=== PATIENT | male | born 1960 | race Caucasian/White ===

== ENCOUNTER 2016-03-06 11:13 | Emergency (ER) | payer OTHER ==
--- NOTE | 2016-03-06 12:06 | ERRECORD ---
[facility] EMERGENCY RECORD HPI BACK (11:35 [facility]) CHIEF COMPLAINT: Patient presents for evaluation of numbness, Patient presents for evaluation of pain, to the left lower back. HISTORIAN: History provided by patient, 55M presents with complaints of left lumbar pain with radiation down his left leg. Denies injury or trauma. Has a remote history of back surgery, but denies any problems over the past 3 years. Denies fever, denies IV drug use. Denies changes in urinary or bowel habits. MECHANISM OF INJURY: No apparent mechanism of injury. LOCATION: Symptoms are localized to the back, left lumbar region. QUALITY: Pain is dull in nature, described as aching. ASSOCIATED WITH: No associated bladder incontinence, No associated bowel incontinence, Associated with numbness, No associated problems with urination, Associated with radiation of pain, to the left leg, Associated with sciatica, on the left. EXACERBATED BY: Patient's condition exacerbated by movement, Patient's condition exacerbated by walking. RELIEVED BY: Patient's condition relieved by nothing. ROS (11:37 [facility]) CONSTITUTIONAL: Negative constitutional review of systems, Historian denies chills, denies fever. EYES: Negative eye review of systems, Historian denies eye pain, denies eye discharge, denies vision changes. ENT: Negative ears, nose, throat review of systems, Historian denies rhinorrhea, denies sore throat. CARDIOVASCULAR: Negative cardiovascular review of systems, Historian denies chest pain, denies palpitations. RESPIRATORY: Negative respiratory review of systems, Historian denies cough, denies shortness of breath. GI: Negative gastrointestinal review of systems, Historian denies abdominal pain, denies constipation, denies diarrhea, denies nausea, denies vomiting. GENITOURINARY MALE: Negative genitourinary review of systems, Historian denies dysuria, denies hematuria. MUSCULOSKELETAL: Historian reports back pain, reports myalgias. SKIN: Negative skin review of systems, Historian denies rash, denies skin changes. NEUROLOGIC: Negative neurologic review of systems, Historian denies headache. HEMO/LYMPHATIC: Normal hematologic/lymphatic system review, Historian denies abnormal blood clotting. PAST MEDICAL HISTORY (11:31 [facility]) MEDICAL HISTORY: Notes: hidradenitis suppurativa, Flu vaccine not up to date, Tetanus immunization up to &a-1R&a+25V*p+0X*l4048T*c202B*c15G*c2P*p-0X&a-25V&a+1R Name: Hever Jimenez : 1960 M55 MedRec: [id number] AcctNum: [id number] Prepared: gautam Mar 06, 2016 12:04 by Interface Page [address] [facility] EMERGENCY RECORD date, Pneumococcal vaccine not up to date, Past medical history includes gastrointestinal disease, diverticulosis, Past medical history includes renal disease, kidney stone(s). MALE SURGICAL HISTORY: Renal stent, Surgical history of spinal surgery, lumbar. PSYCHIATRIC HISTORY: No previous psychiatric history. SOCIAL HISTORY: Patient denies alcohol use, Patient denies drug use, Patient currently uses tobacco, smokes cigarettes, daily, Patient has smoked for 15 years, Patient smokes 1/2 packs per day. KNOWN ALLERGIES NSAIDS (Non-Steroidal Anti-Inflammatory Drug) Penicillins CURRENT MEDICATIONS (11:23 [facility]) None VITAL SIGNS VITAL SIGNS: BP: 133/79, Pulse: 98, Resp: 18 (Non-Labored), Temp: 97.8 (Oral), Pain: 9, O2 sat: 96 on Room Air, Time: 03/06/2016 11:19. (11:19 WJAN) BP: 124/79, Pulse: 98, Resp: 18, Temp: 97.8, Pain: 6, O2 sat: 96 on RA, Time: 03/06/2016 11:58. (11:58 [facility]) PHYSICAL EXAM (11:37 [facility]) CONSTITUTIONAL: Vital signs reviewed, Patient afebrile, Pulse normal, Blood pressure normal, Respiratory rate normal, Patient appears non toxic, Patient appears pain free, Patient alert and oriented to person, place and time. HEAD: Head exam normal, Head exam included findings of head atraumatic, normocephalic. EYES: Eye exam normal, Eye exam included findings of eyelids normal to inspection, Pupils equally round and reactive to light, Extraocular muscles intact, no nystagmus. ENT: ENT exam normal, Ear exam normal, external ear normal, tympanic membranes normal, no bleeding, Pharynx exam normal, Uvula exam normal, Tonsil exam normal, Mouth exam normal, mucous membranes moist, teeth normal. NECK: Neck exam normal, Neck exam included findings of normal range of motion, Trachea midline, no meningeal signs, no cervical adenopathy, no tenderness. RESPIRATORY CHEST: Respiratory and chest exam normal, Respiratory exam included findings of no respiratory distress, Breath sounds clear. CARDIOVASCULAR: Cardiovascular assessment normal, Cardiovascular exam included findings of heart rate regular rate and rhythm, Heart sounds normal. ABDOMEN MALE: Abdominal exam included findings of abdomen &a-1R&a+25V*p+0X*d2111A*c202B*c15G*c2P*p-0X&a-25V&a+1R Name: Hever Jimenez : 1960 M55 MedRec: [id number] AcctNum: [id number] Prepared: Margie Mar 06, 2016 12:04 by Interface Page [address] [facility] EMERGENCY RECORD nontender, Bowel sounds normal, no distension, no mass, no pulsatile masses, no peritoneal signs, no rigidity, no guarding, no rebound, Rovsing's sign absent. BACK: old deformity over lumbar spine and surgical scar. No midline tenderness, no warmth or erythema. Mild lumbar paraspinal tenderness to palpation. positive straight leg test. UPPER EXTREMITY: Upper extremity exam normal, Upper extremity exam included findings of inspection normal, Range of motion normal, Motor strength normal, Sensation intact, Radial pulse normal. LOWER EXTREMITY: Lower extremity exam normal, Lower extremity exam included findings of inspection normal, Range of motion normal, Motor strength normal, Sensation intact, Posterior tibial pulse normal, Pedal pulse normal. NEURO: Neuro exam normal, Neuro exam findings include patient oriented to person, place and time, Speech normal, Gait normal. SKIN: Skin exam normal, Skin exam included findings of skin warm, dry, and normal in color, no rash. PSYCHIATRIC: Psychiatric exam normal, Normal affect. 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 DOCTOR NOTES (11:55 [facility]) TEXT: Patient presented with back pain concerning for sciatic nerve root impingement. There were no findings concerning for cauda equina syndrome, and he had no features that would be concerning for an spinal abscess or infectious process. I believe based on his symptoms he likely has nerve root impingement. Xray of the spine believed to show no acute changes, all chronic. I offered urgent MRI but he refused and stated he would prefer to follow up with his back surgeon in [place]. I do not believe that this is an inappropriate plan of care, and will provide analgesia until he sees his specialist, hopefully this week. He believes he will be able to be seen this week. PATIENT PLAN: The patient will be discharged, Follow up with specialist. PROBLEM LIST No recorded problems DIAGNOSIS (11:52 [facility]) FINAL: PRIMARY: Sciatica - Left. PRESCRIPTION No recorded prescriptions DISPOSITION PATIENT: Disposition Type: Discharge, Disposition: *Discharge Home. (:52 [facility]) &a-1R&a+25V*p+0X*m3453D*c202B*c15G*c2P*p-0X&a-25V&a+1R Name: Hever Jimenez Harris : 1960 M55 MedRec: [id number] AcctNum: [id number] Prepared: Margie Mar 06, 2016 12:04 by Interface Page [address] [facility] EMERGENCY RECORD Condition: Good, Patient left the department. (12:01 [facility]) Mendoza: LOPEZ=MD Steffanie, Sudhir GASCA=ROSALIA Kinney, Dora &a-1R&a+25V*p+0X*n6164L*c202B*c15G*c2P*p-0X&a-25V&a+1R Name: Hever Jimenez Harris : 1960 5 MedRec: [id number] AcctNum: [id number] Prepared: Margie Mar 06, 2016 12:04 by Interface Page 4 of 4 pMD MTDD
--- NOTE | 2016-03-06 12:09 | PICIS ---
[facility] EMERGENCY RECORD TRIAGE (SatMar 06, 2016 11:22 WJAN) TRIAGE NOTES: Pt reports similar pain prior to back surgery 3 years ago. (SatMar 06, 2016 11:22 [facility]) PATIENT: NAME: Hever Jimenez, AGE: 55, GENDER: male, : Sat1960, TIME OF GREET: SatMar 06, 2016 11:15, PREFERRED LANGUAGE: Kyrgyz, ETHNICITY: Not or , ECODE BILLING MAP: [facility], SSN: [id number], Zip Code: [address], KG WEIGHT: 63.5 (est.), PHONE: , , , PERSON ID: [id number], PCP: SHANICE. (SatMar 06, 2016 11:22 W[facility]AN) [facility]. (11:39) COMPLAINT: Left hip pain. (SatMar 06, 2016 11:22 WJAN) ADMISSION: URGENCY: 4 Non Urgent, ADMISSION SOURCE: Home, TRANSPORT: Walk-in, BED: TRIAGE. (SatMar 06, 2016 11:22 WJAN) ASSESSMENT: Assessment: Pt A&Ox4, NAD, breathing non-labored. Walking difficult for left side. (11:31 [facility]) PAIN: Patient complains of pain described as, Location left hip, Pain is constant, Onset was 03/06/2015, No relieving factors. (11:31 [facility]) IMMUNIZATIONS: Flu vaccine not up to date, Tetanus immunization up to date, Pneumococcal vaccine not up to date. (11:31 [facility]) SIRS SCORING: Heart Rate 55-109 (0), Temp range 96.8-101.1 (0), respiratory rate 12-24 (0), Mental Status altered: no (0), Infection or Suspected Infection: No. (11:31 WJAN) TRIAGE SCREENING: Patient denies suicidal ideation, Patient denies presence of domestic violence. (11:31 WJAN) PROVIDERS: TRIAGE NURSE: Dora Kinney RN. (SatMar 06, 2016 11:22 WJAN) VITAL SIGNS: BP 133/79, Pulse 98, Resp 18, (Non-Labored), Temp 97.8, (Oral), Pain 9, O2 Sat 96, on Room Air, Time 03/06/2016 11:19. (11:19 WJAN) KNOWN ALLERGIES NSAIDS (Non-Steroidal Anti-Inflammatory Drug) Penicillins CURRENT MEDICATIONS (11:23 [facility]) None VITAL SIGNS VITAL SIGNS: BP: 133/79, Pulse: 98, Resp: 18 (Non-Labored), Temp: 97.8 (Oral), Pain: 9, O2 sat: 96 on Room Air, Time: 03/06/2016 11:19. (11:19 WJAN) BP: 124/79, Pulse: 98, Resp: 18, Temp: 97.8, Pain: 6, O2 sat: 96 on RA, Time: 03/06/2016 11:58. (11:58 WJAN) NURSING ASSESSMENT: EXTREMITY LOWER (11:33 [facility]) CONSTITUTIONAL: Patient arrives ambulatory, Gait steady, History obtained from patient, Patient appears, uncomfortable, &a-1R&a+25V*p+0X*j8267Q*c202B*c15G*c2P*p-0X&a-25V&a+1R Name: Hever Jimenez : 1960 M55 MedRec: [id number] AcctNum: [id number] Prepared: Margie Mar 06, 2016 12:06 by Interface Page 1 of 6 pMD [facility] EMERGENCY RECORD Patient cooperative, Patient alert, Oriented to person, place and time, Skin warm, Skin dry, Skin normal in color, Mucous membranes pink, Mucous membranes moist, Patient is well-groomed, Patient complains of Left hip pain, Pt reports pain in left hip starting last night, pt states he had similar pain prior to back surgery 3 years ago. Pt states pain is radiating down from left hip to lower leg. PT A&Ox4, NAD, breathing non-labored. PAIN: shooting pain, to the left hip, on a scale 0-10 patient rates pain as 9, Pain exacerbated by. LEFT LOWER EXTREMITY: Left lower extremity assessment findings include capillary refill less than 2 seconds, Skin color normal, Skin temperature warm, Distal sensation intact, Muscle tone normal, muscle strength 5, no edema present, posterior tibia pulse is +3, dorsalis pedis pulse is +3, Inspection findings include no deformity, Inspection findings include no pressure ulcers to the hip, Inspection findings include no pressure ulcer to the sacrum, Inspection findings include no pressure ulcer to the heel, Inspection findings include no pressure ulcer, Inspection findings include no signs of trauma, Inspection findings include no swelling. SAFETY: Side rails up, Cart/Stretcher in lowest position, Call light within reach, Hospital ID band on. NURSING PROCEDURE: DISCHARGE NOTE (11:58 WJAN) DISCHARGE: Patient discharged to home, ambulating without assistance, driving self, unaccompanied, Summary of Care printed/ provided, Patient requested and was provided an electronic copy of Discharge Instructions, Transition record given to patient, Discharge instructions given to patient, Simple or moderate discharge teaching performed, by Dora RN, Prescriptions given and instructions on side effects given, Medication reconciliation form given, Above person(s) verbalized understanding of discharge instructions and follow-up care, Notes: Patient instructed to follow up with PCP and specialist. Patient instructed to follow medication instructions. Patient instructed to follow discharge teaching. BELONGINGS: Belongings remain with patient, Valuables remain with patient. SAFETY: Side rails up, Cart/Stretcher in lowest position, Call light within reach, Hospital ID band on. VITAL SIGNS: BP: 124, / 79, Pulse: 98, Resp: 18, Temp: 97.8, Pain: 6, O2 sat: 96, on: RA, Time: 1155. NURSING PROCEDURE: NURSE NOTES NURSES NOTES: Notes: MD at bedside. (11:26 WJAN) Patient in no apparent distress, Assistance offered to patient, Notes: MD at bedside. (11:43 WJAN) NURSING PROCEDURE: TRANSPORT TO TESTS PATIENT IDENTIFIER: Patient actively involved in identification process, Patient's identity verified by patient stating name, Patient's identity verified by patient stating date, Patient's &a-1R&a+25V*p+0X*j6078N*c202B*c15G*c2P*p-0X&a-25V&a+1R Name: Hever Jimenez : 1960 M55 MedRec: [id number] AcctNum: [id number] Prepared: Margie Mar 06, 2016 12:06 by Interface Page 2 of 6 D [facility] EMERGENCY RECORD identity verified by hospital ID [email or web address]. (11:36 [facility]) TRANSPORT TO TESTS: Patient transported to x-ray, via wheelchair, Accompanied by x-ray service center technician. (11:36 [facility]) FOLLOW-UP: After procedure, patient returned to emergency department. (11:43 WJAN) ORDER DETAILS Order Name: XR Lumbar Spine 2 Or 3 View, Status: Active, Time: 11:30 03/06/2016, User: [facility], - Ordered for: MD Valiente Jason, - Entered by: MD Valiente Jason - Tue Mar 06, 2016 11:30, - Quantity: 1. HPI BACK (11:35 [facility]) CHIEF COMPLAINT: Patient presents for evaluation of numbness, Patient presents for evaluation of pain, to the left lower back. HISTORIAN: History provided by patient, 55M presents with complaints of left lumbar pain with radiation down his left leg. Denies injury or trauma. Has a remote history of back surgery, but denies any problems over the past 3 years. Denies fever, denies IV drug use. Denies changes in urinary or bowel habits. MECHANISM OF INJURY: No apparent mechanism of injury. LOCATION: Symptoms are localized to the back, left lumbar region. QUALITY: Pain is dull in nature, described as aching. ASSOCIATED WITH: No associated bladder incontinence, No associated bowel incontinence, Associated with numbness, No associated problems with urination, Associated with radiation of pain, to the left leg, Associated with sciatica, on the left. EXACERBATED BY: Patient's condition exacerbated by movement, Patient's condition exacerbated by walking. RELIEVED BY: Patient's condition relieved by nothing. ROS (11:37 [facility]) CONSTITUTIONAL: Negative constitutional review of systems, Historian denies chills, denies fever. EYES: Negative eye review of systems, Historian denies eye pain, denies eye discharge, denies vision changes. ENT: Negative ears, nose, throat review of systems, Historian denies rhinorrhea, denies sore throat. CARDIOVASCULAR: Negative cardiovascular review of systems, Historian denies chest pain, denies palpitations. RESPIRATORY: Negative respiratory review of systems, Historian denies cough, denies shortness of breath. GI: Negative gastrointestinal review of systems, Historian denies abdominal pain, denies constipation, denies diarrhea, denies nausea, denies vomiting. &a-1R&a+25V*p+0X*o6630I*c202B*c15G*c2P*p-0X&a-25V&a+1R Name: Hever Jimenez : 1960 M55 MedRec: [id number] AcctNum: [id number] Prepared: SatMar 06, 2016 12:06 by Interface Page 3 of 6 pMD [facility] EMERGENCY RECORD GENITOURINARY MALE: Negative genitourinary review of systems, Historian denies dysuria, denies hematuria. MUSCULOSKELETAL: Historian reports back pain, reports myalgias. SKIN: Negative skin review of systems, Historian denies rash, denies skin changes. NEUROLOGIC: Negative neurologic review of systems, Historian denies headache. HEMO/LYMPHATIC: Normal hematologic/lymphatic system review, Historian denies abnormal blood clotting. PAST MEDICAL HISTORY (11:31 [facility]) MEDICAL HISTORY: Notes: hidradenitis suppurativa, Flu vaccine not up to date, Tetanus immunization up to date, Pneumococcal vaccine not up to date, Past medical history includes gastrointestinal disease, diverticulosis, Past medical history includes renal disease, kidney stone(s). MALE SURGICAL HISTORY: Renal stent, Surgical history of spinal surgery, lumbar. PSYCHIATRIC HISTORY: No previous psychiatric history. SOCIAL HISTORY: Patient denies alcohol use, Patient denies drug use, Patient currently uses tobacco, smokes cigarettes, daily, Patient has smoked for 15 years, Patient smokes 1/2 packs per day. PHYSICAL EXAM (11:37 [facility]) CONSTITUTIONAL: Vital signs reviewed, Patient afebrile, Pulse normal, Blood pressure normal, Respiratory rate normal, Patient appears non toxic, Patient appears pain free, Patient alert and oriented to person, place and time. HEAD: Head exam normal, Head exam included findings of head atraumatic, normocephalic. EYES: Eye exam normal, Eye exam included findings of eyelids normal to inspection, Pupils equally round and reactive to light, Extraocular muscles intact, no nystagmus. ENT: ENT exam normal, Ear exam normal, external ear normal, tympanic membranes normal, no bleeding, Pharynx exam normal, Uvula exam normal, Tonsil exam normal, Mouth exam normal, mucous membranes moist, teeth normal. NECK: Neck exam normal, Neck exam included findings of normal range of motion, Trachea midline, no meningeal signs, no cervical adenopathy, no tenderness. RESPIRATORY CHEST: Respiratory and chest exam normal, Respiratory exam included findings of no respiratory distress, Breath sounds clear. CARDIOVASCULAR: Cardiovascular assessment normal, Cardiovascular exam included findings of heart rate regular rate and rhythm, Heart sounds normal. ABDOMEN MALE: Abdominal exam included findings of abdomen &a-1R&a+25V*p+0X*n4249Q*c202B*c15G*c2P*p-0X&a-25V&a+1R Name: Hever Jimenez : 1960 M55 MedRec: [id number] AcctNum: [id number] Prepared: SatMar 06, 2016 12:06 by Interface Page 4 of 6 pMD [facility] EMERGENCY RECORD nontender, Bowel sounds normal, no distension, no mass, no pulsatile masses, no peritoneal signs, no rigidity, no guarding, no rebound, Rovsing's sign absent. BACK: old deformity over lumbar spine and surgical scar. No midline tenderness, no warmth or erythema. Mild lumbar paraspinal tenderness to palpation. positive straight leg test. UPPER EXTREMITY: Upper extremity exam normal, Upper extremity exam included findings of inspection normal, Range of motion normal, Motor strength normal, Sensation intact, Radial pulse normal. LOWER EXTREMITY: Lower extremity exam normal, Lower extremity exam included findings of inspection normal, Range of motion normal, Motor strength normal, Sensation intact, Posterior tibial pulse normal, Pedal pulse normal. NEURO: Neuro exam normal, Neuro exam findings include patient oriented to person, place and time, Speech normal, Gait normal. SKIN: Skin exam normal, Skin exam included findings of skin warm, dry, and normal in color, no rash. PSYCHIATRIC: Psychiatric exam normal, Normal affect. EVENTS TRANSFER: Triage to Emergency Triage. (SatMar 06, 2016 11:22 [facility]) Emergency Triage to Emergency Room -02. (11:23 [facility]) Removed from Emergency Emergency Room -02. 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 [facility] TEXT: Patient presented with back pain concerning for sciatic nerve root impingement. There were no findings concerning for cauda equina syndrome, and he had no features that would be concerning for an spinal abscess or infectious process. I believe based on his symptoms he likely has nerve root impingement. Xray of the spine believed to show no acute changes, all chronic. I offered urgent MRI but he refused and stated he would prefer to follow up with his back surgeon in [place]. I do not believe that this is an inappropriate plan of care, and will provide analgesia until he sees his specialist, hopefully this week. He believes he will be able to be seen this week. PATIENT PLAN: The patient will be discharged, Follow up with specialist. PROBLEM LIST No recorded problems DIAGNOSIS (: [facility]) FINAL: PRIMARY: Sciatica - Left. &a-1R&a+25V*p+0X*t6588S*c202B*c15G*c2P*p-0X&a-25V&a+1R Name: Hever Jimenez Harris : 1960 M55 MedRec: [id number] AcctNum: [id number] Prepared: Margie Mar 06, 2016 12:06 by Interface Page 5 of 6 pMD [facility] EMERGENCY RECORD DISPOSITION PATIENT: Disposition Type: Discharge, Disposition: *Discharge Home. (: [facility]) Condition: Good, Patient left the department. (:) INSTRUCTION (: [facility]) DISCHARGE: SCIATICA. SPECIAL: Call your Back surgeon TODAY. Schedule an MRI as soon as possible. Return to the ED if you have bowel incontinence, can't urinate, or develop a fever. PRESCRIPTION No recorded prescriptions IMAGING (:) *SUPPLY CHARGE SHEET: Image captured from scanner. *DISCHARGE INSTRUCTIONS RECEIPT: Image captured from scanner. ADMIN (11:58 [facility]) DIGITAL SIGNATURE: MD Steffanie, Sudhir. Mendoza: RENARD=DWAYNE Feliciano, June [facility]=MD Valiente Jason WJAN=ROSALIA Kinney, Dora &a-1R&a+25V*p+0X*a3945O*c202B*c15G*c2P*p-0X&a-25V&a+1R Name: Hever Jimenez Harris : 1960 M55 MedRec: [id number] AcctNum: [id number] Prepared: Margie Mar 06, 2016 12:06 by Interface Page 6 of 6 pMD MTDD
--- NOTE | 2016-03-06 20:26 | RAD ---
LUMBAR SPINE 03/06/16 Three views are provided. Prior studies are not available for comparison, though are probably presen t elsewhere given a history of a prior laminectomy. Lumbar scoliosis is present, convexed left. Severe degenerative disc disease is seen in the lumbar s pine, especially at L2-L3, L3-L4 and L4-L5. There is a prominent anterolisthesis of L4 on L5 and a s light anterolisthesis of L5 on S1. I would not be surprised if there were neural impingement in this patient. MRI would be better at assessing this status. A calcification is seen in the left flank th at is probably left renal calculi. IMPRESSION: Scoliosis with severe degenerative change and prominent anterolisthesis, particularly at L4-L5. MRI recommended if possible. POS: HOME
== END 2016-03-06 11:58 | disposition home or self-care (01) ==
LOC: BURERS 11:13
DX: M54.42 Lumbago with sciatica, left side (principal); F17.210 Nicotine dependence, cigarettes, uncomplicated; Z87.442 Personal history of urinary calculi
CPT/HCPCS: 72100; 99283

== ENCOUNTER 2016-03-19 10:06 | Emergency (ER) | payer OTHER ==
[2016-03-19] MEDS ORDERED: Morphine Sulfate 2 MG/ML SYRINGE ONE ×2 (10:25→11:10)
[2016-03-19] MEDS ORDERED: Diazepam 5 MG TAB ONE ×2 (10:37)
[2016-03-19] MEDS ORDERED: Diazepam 5 MG TAB PO SCH (10:45)
[2016-03-19] MEDS ORDERED: HYDROcodone/Acetaminophen 5/325 mg Tablet ONE (11:48)
[2016-03-19 12:00] LABS: Bilirubin Negative (Negative); Blood, Urine Negative (Negative); Glucose, Urine (Dipstick) Negative (Negative); Ketone, Urine Negative (Negative); Nitrite Negative (Negative); Protein, Urine (Dipstick) Negative (Neg-Trace); Urobilinogen 0.2 mg/dL (0.2-1.0)
--- NOTE | 2016-03-19 12:39 | ERRECORD ---
[facility] EMERGENCY RECORD HPI BACK CHIEF COMPLAINT: Patient presents for evaluation of pain, to the right lower back. (10:23 MBRI) HISTORIAN: History provided by patient. (10:23 MBRI) MECHANISM OF INJURY: No apparent mechanism of injury, No domestic violence associated with this incident, Not work related, Pt with hx of back pain with stenosis and prior laminectomy 3yrs prior. (10:23 MBRI) LOCATION: Symptoms are localized to the back, right lumbar region, No radiation back to front, No radiation to the groin, Pain has not moved in location over time, with radiation to the buttock and down the outer portion of the right leg. (10:23 MBRI) QUALITY: Pain is dull in nature, described as aching. (10:23 MBRI) SEVERITY: Maximum severity of symptoms moderate, Currently symptoms are moderate. (10:23 MBRI) TIME COURSE: Sudden onset of symptoms, this am., Symptoms are worsening. (10:23 MBRI) ASSOCIATED WITH: No associated abdominal pain, No associated bladder incontinence, No associated bowel incontinence, No associated dysuria, No associated fever, No associated inability to ambulate, No associated motor weakness, No associated numbness, No associated problems with urination, Associated with radiation of pain, to the right leg, to the right buttock, Associated with sciatica, No associated tingling, Denies any other complaints. (10:25 MBRI) EXACERBATED BY: Patient's condition exacerbated by extension, Patient's condition exacerbated by flexion, Patient's condition exacerbated by movement, Patient's condition exacerbated by rotation, Patient's condition exacerbated by walking. (10:23 MBRI) RELIEVED BY: Patient's condition relieved by nothing. (10:23 MBRI) RISK FACTORS: No malignancy risks identified, Herniated disc risks:, History of herniated disc, Disc surgery, No risk factors for thoracic aortic dissection, No abdominal aortic aneurysm risk factors, No epidural bleed risk factors, No epidural abcess risk factors. (10:23 MBRI) ROS (10:23 MBRI) CONSTITUTIONAL: Negative constitutional review of systems, Historian denies chills, denies fever. EYES: Negative eye review of systems. ENT: Negative ears, nose, throat review of systems. CARDIOVASCULAR: Historian denies chest pain, denies dyspnea on exertion. RESPIRATORY: Historian denies cough, denies shortness of breath. GI: Negative gastrointestinal review of systems, Historian denies abdominal pain, denies diarrhea, denies nausea, denies vomiting. GENITOURINARY MALE: Historian denies dysuria, denies hematuria, denies incontinence, denies urinary frequency, denies urine output changes, denies urinary retention. &a-1R&a+25V*p+0X*i6480P*c202B*c15G*c2P*p-0X&a-25V&a+1R Name: Hever Jimenez : 1960 M55 MedRec: [id number] AcctNum: [id number] Prepared: SatMar 19, 2016 12:34 by Interface Page [address] [facility] EMERGENCY RECORD MUSCULOSKELETAL: Historian reports back pain, denies fall, denies injury, denies neck pain. . SKIN: Negative skin review of systems, Historian denies skin changes. NEUROLOGIC: Negative neurologic review of systems, Historian denies focal weakness, denies sensory changes. PAST MEDICAL HISTORY (10:13 KMOR) MEDICAL HISTORY: Notes: hidradenitis suppurativa, Flu vaccine not up to date, Tetanus immunization up to date, Pneumococcal vaccine not up to date, Past medical history includes gastrointestinal disease, diverticulosis, Past medical history includes renal disease, kidney stone(s). MALE SURGICAL HISTORY: Renal stent, Surgical history of spinal surgery, lumbar. PSYCHIATRIC HISTORY: No previous psychiatric history. SOCIAL HISTORY: Patient denies alcohol use, Patient denies drug use, Patient currently uses tobacco, smokes cigarettes, daily, Patient has smoked for 15 years, Patient smokes 1/2 packs per day. KNOWN ALLERGIES NSAIDS (Non-Steroidal Anti-Inflamma (Unconfirmed) NSAIDS (Non-Steroidal Anti-Inflammatory Drug) Penicillins CURRENT MEDICATIONS (10:11 KMOR) None VITAL SIGNS VITAL SIGNS: BP: 131/100, Pulse: 89, Resp: 18, Temp: 97.8 (Oral), Pain: 8, O2 sat: 98 on Room Air, Time: 03/19/2016 10:11. (10:11 KMOR) BP: 143/91, Pulse: 75, Resp: 18, Pain: 8, O2 sat: 97 on Room Air, Time: 03/19/2016 10:37. (10:37 KMOR) BP: 137/91, Pulse: 68, Resp: 18, O2 sat: 96 on Room Air, Time: 03/19/2016 11:15. (11:15 KMOR) BP: 117/77, Pulse: 66, Resp: 16, O2 sat: 97 on Room Air, Time: 03/19/2016 12:00. (12:00 KMOR) Pain: 5, Time: 03/19/2016 12:15. (12:15 LGIB) PHYSICAL EXAM CONSTITUTIONAL: Vital Signs Reviewed, Nursing notes reviewed. (10:23 MBRI) HEAD: Head exam included findings of head atraumatic, normocephalic. (10:23 MBRI) RESPIRATORY CHEST: Respiratory exam included findings of no respiratory distress, Breath sounds not clear, Wheezing present, anteriorally, to the left upper lobe, to the right upper lobe, No rales, Breath sounds not diminished, Chest exam included findings of chest movement &a-1R&a+25V*p+0X*[id number]*c202B*c15G*c2P*p-0X&a-25V&a+1R Name: Hever Jimenez : 1960 M55 MedRec: [id number] AcctNum: [id number] Prepared: SatMar 19, 2016 12:34 by Interface Page [address] [facility] EMERGENCY RECORD symmetrical. (10:23 MBRI) CARDIOVASCULAR: Cardiovascular exam included findings of heart rate regular rate and rhythm, Heart sounds normal, Carotids normal. (10:23 MBRI) ABDOMEN MALE: Abdominal exam included findings of abdomen nontender, Bowel sounds normal, no distension, no peritoneal signs, no rigidity, no guarding, no rebound. (10:23 MBRI) GENITOURINARY MALE: Genitourinary exam included findings of penis normal, Testicles normal. (10:28 MBRI) BACK: Back exam included findings of normal inspection, Range of motion, decreased, limited by pain, Tenderness, paraspinal to the right lower, no costovertebral angle tenderness, Straight leg raise, without pain on the left, with pain on the right at 10 degrees. (10:23 MBRI) UPPER EXTREMITY: Upper extremity exam included findings of inspection normal, Range of motion normal, Motor strength normal, Radial pulse normal, no cyanosis, no clubbing, no edema. (10:23 MBRI) LOWER EXTREMITY: Lower extremity exam included findings of inspection normal, Range of motion normal, Motor strength normal, Sensation intact, Pedal pulse normal, no cyanosis, no clubbing, no edema, no calf tenderness, Able to flex and extend his feet and toes. (10:23 MBRI) NEURO: Neuro exam findings include patient oriented to person, place and time, Speech normal, Antalgic Gait due to pain on the right side, Deep tendon reflexes normal, no clonus, No focal motor or sensory deficits noted in the lower ext bilaterally. (10:23 MBRI) SKIN: Skin exam included findings of skin warm, dry, and normal in color, scarring from hidradenitis is noted. (10:23 MBRI) MEDICATION ADMINISTRATION SUMMARY Drug Name: HYDROcodone-acetaminophen, Dose Ordered: 5/325 mg, Route: Oral, Status: Given, Time: 11:50 03/19/2016, Drug Name: morphine injection, Dose Ordered: 6 mg, Route: Intramuscular, Status: Given, Time: 11:14 03/19/2016, Drug Name: Valium oral, Dose Ordered: 5 mg, Route: Oral, Status: Given, Time: 10:37 03/19/2016, Drug Name: morphine injection, Dose Ordered: 6 mg, Route: Intramuscular, Status: Given, Time: 10:28 03/19/2016, Detailed record available in Medication Service section. DOCTOR NOTES (12:27 MBRI) TEXT: Pt evaluated at this time and appears stable. No findings to suggest sig illness or issue requiring hospitalization or further intervention at this time. Eval and exam reveals back pain or a musculoskeletal etiology without any present neuro or vasc issues or emergencies. I rec conservative type therapy and PMD follow-up. Plan of care discussed with pt and questions answered. Pt was informed of reasons for follow-up and return and they stated &a-1R&a+25V*p+0X*[id number]*c202B*c15G*c2P*p-0X&a-25V&a+1R Name: Hever Jimenez Harris : 1960 M55 MedRec: [id number] AcctNum: [id number] Prepared: SatMar 19, 2016 12:34 by Interface Page [address] [facility] EMERGENCY RECORD understanding. Pt is stable for d/c home at this time. PROBLEM LIST No recorded problems DIAGNOSIS (12:24 MBRI) FINAL: PRIMARY: Sciatica - RIGHT. PRESCRIPTION (12:24 MBRI) Flexeril: TABLET : 10 mg : ORAL : Quantity: 1 Unit: tab(s) Route: ORAL Schedule: every 8 hours PRN Dispense: 30 May substitute. Refills: No Refills . NOTES: No refills. HYDROcodone-acetaminophen: TABLET : 5 mg-325 mg : ORAL : Quantity: 1-2 Unit: tab(s) Route: ORAL Schedule: every 4 hours prn Dispense: 20 May substitute. Refills: No Refills . NOTES: ^s=No refills No refills. DISPOSITION PATIENT: Disposition Type: Discharge, Disposition: *Discharge Home, Condition: Improved. (12:24 MBRI) Patient left the department. (12:32 LGIB) Mendoza: KMOR=ROSALIA Robin, Khushi LGIB=ROSALIA Burt, Rima MBRI=DO [place] Matthew &a-1R&a+25V*p+0X*i3391X*c202B*c15G*c2P*p-0X&a-25V&a+1R Name: Hever Jimenez Harris : 1960 M55 MedRec: [id number] AcctNum: [id number] Prepared: SatMar 19, 2016 12:34 by Interface Page 4 of 4 pMD MTDD
--- NOTE | 2016-03-19 12:46 | PICIS ---
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 (SatMar 19, 2016 10:11 KMOR) PATIENT: NAME: Hever Jimenez, AGE: 55, GENDER: male, : Sat1960, TIME OF GREET: SatMar 19, 2016 10:06, PREFERRED LANGUAGE: Venezuelan, ETHNICITY: Not or , ECODE BILLING MAP: [facility], SSN: [id number], Zip Code: [address], KG WEIGHT: 65.77, PHONE: , , , PERSON ID: [id number], PAYMENT: [place], PCP: none. (SatMar 19, 2016 10:11 KMOR) COMPLAINT: Right Leg Pain. (SatMar 19, 2016 10:11 KMOR) ADMISSION: URGENCY: 4 Non Urgent, ADMISSION SOURCE: Home, TRANSPORT: CAR, BED: ER -04. (SatMar 19, 2016 10:11 KMOR) ASSESSMENT: Assessment: A&OX4. RR EVEN AND UNLABORED., Symptoms began 1 hour ago. (10:13 KMOR) PAIN: Patient complains of pain described as, shooting, Location RIGHT LEG. (10:13 KMOR) SIRS SCORING: Heart Rate 55-109 (0), Temp range 96.8-101.1 (0), respiratory rate 12-24 (0), Mental Status altered: no (0), Infection or Suspected Infection: No. (10:13 KMOR) TRIAGE SCREENING: Patient denies suicidal ideation, Patient denies presence of domestic violence. (10:13 KMOR) PROVIDERS: TRIAGE NURSE: Khushi Robin RN. (SatMar 19, 2016 10:11 KMOR) VITAL SIGNS: BP 131/100, Pulse 89, Resp 18, Temp 97.8, (Oral), Pain 8, O2 Sat 98, on Room Air, Time 03/19/2016 10:11. (10:11 KMOR) PREVIOUS VISIT ALLERGIES: NSAIDS (Non-Steroidal Anti-Inflammatory Drug), Penicillins. (SatMar 19, 2016 10:11 KMOR) NSAIDS (Non-Steroidal Anti-Inflammatory Drug), Penicillins. (10:13 KMOR) KNOWN ALLERGIES NSAIDS (Non-Steroidal Anti-Inflamma (Unconfirmed) NSAIDS (Non-Steroidal Anti-Inflammatory Drug) Penicillins CURRENT MEDICATIONS (10:11 KMOR) None VITAL SIGNS VITAL SIGNS: BP: 131/100, Pulse: 89, Resp: 18, Temp: 97.8 (Oral), Pain: 8, O2 sat: 98 on Room Air, Time: 03/19/2016 10:11. (10:11 KMOR) BP: 143/91, Pulse: 75, Resp: 18, Pain: 8, O2 sat: 97 on Room Air, Time: 03/19/2016 10:37. (10:37 KMOR) BP: 137/91, Pulse: 68, Resp: 18, O2 sat: 96 on Room Air, Time: 03/19/2016 11:15. (11:15 KMOR) BP: 117/77, Pulse: 66, Resp: 16, O2 sat: 97 on Room Air, Time: 03/19/2016 12:00. (12:00 KMOR) Pain: 5, Time: 03/19/2016 12:15. (12:15 LGIB) NURSING ASSESSMENT: EXTREMITY LOWER (10:17 KMOR) &a-1R&a+25V*p+0X*f2284T*c202B*c15G*c2P*p-0X&a-25V&a+1R Name: Hever Jimenez : 1960 M55 MedRec: [id number] AcctNum: [id number] Prepared: SatMar 19, 2016 12:41 by Interface Page 1 of 8 pMD [facility] EMERGENCY RECORD CONSTITUTIONAL: Patient arrives ambulatory, Gait steady, History obtained from patient, Patient appears, restless, uncomfortable, Patient cooperative, Patient alert, Oriented to person, place and time, Skin warm, Skin dry, Skin normal in color, Mucous membranes pink, Mucous membranes moist, Patient, poorly groomed, Patient complains of Right leg pain, Patient reports pain shooting down right leg, reports started in butt and goes down outside of right leg. PAIN: aching pain, shooting pain, to the right hip, to the right upper leg, on a scale 0-10 patient rates pain as 8. LEFT LOWER EXTREMITY: Left lower extremity assessment findings include capillary refill less than 2 seconds, Skin color normal, Skin temperature warm, Distal sensation intact, Muscle tone normal, muscle strength 5, no edema present, dorsalis pedis pulse is +3. RIGHT LOWER EXTREMITY: Right lower extremity assessment findings include capillary refill less than 2 seconds, Skin color normal, Skin temperature warm, Distal sensation intact, Muscle tone normal, muscle strength 5, no edema present, dorsalis pedis pulse is +3, Inspection findings include no contusion, Inspection findings include no redness, Inspection findings include no swelling. NOTES: Patient tolerated procedure well. NURSING PROCEDURE: DISCHARGE NOTE (12:31 LGIB) DISCHARGE: Patient discharged to home, ambulating without assistance, friend driving, accompanied by friend, Summary of Care printed/ provided, Patient requested and was provided an electronic copy of Discharge Instructions, Discharge instructions given to patient, Simple or moderate discharge teaching performed, Prescriptions given and instructions on side effects given, Above person(s) verbalized understanding of discharge instructions and follow-up care, Patient treated and evaluated by physician. BELONGINGS: Belongings and valuables with patient at time of discharge include:, Belongings remain with patient, Valuables remain with patient. NURSING PROCEDURE: NURSE NOTES NURSES NOTES: Notes: Patient reports still having pain, requested shot to help numb the pain, Dr. Chacon notified and stated he will come to speak to patient. (11:03 KMOR) Notes: Urine requested from patient, pt assisted to stand on side of bed to make sure not dizzy. (11:46 KMOR) NURSING PROCEDURE: URINE COLLECTION (11:45 KMOR) PATIENT IDENTIFIER: Patient actively involved in identification process, Patient's identity verified by patient stating name, Patient's identity verified by patient stating date. URINE COLLECTION MALE: Urine collected by void, output amount (mL) 300ml, urine yellow in color, and clear, Specimen labeled in the presence of the patient and sent to lab. &a-1R&a+25V*p+0X*q8319C*c202B*c15G*c2P*p-0X&a-25V&a+1R Name: Hever Jimenez : 1960 M55 MedRec: [id number] AcctNum: [id number] Prepared: SatMar 19, 2016 12:41 by Interface Page 2 of 8 pMD [facility] EMERGENCY RECORD ORDER DETAILS Order Name: Urinalysis w/ Rflx Microscopic, Status: Active, Time: 11:42 03/19/2016, User: ENRICO, - Ordered for: DO Chacon Matthew, - Entered by: DO Chacon Matthew - SatMar 19, 2016 11:42, - Quantity: 1. MEDICATION ADMINISTRATION SUMMARY Drug Name: HYDROcodone-acetaminophen, Dose Ordered: 5/325 mg, Route: Oral, Status: Given, Time: 11:50 03/19/2016, Drug Name: morphine injection, Dose Ordered: 6 mg, Route: Intramuscular, Status: Given, Time: 11:14 03/19/2016, Drug Name: Valium oral, Dose Ordered: 5 mg, Route: Oral, Status: Given, Time: 10:37 03/19/2016, Drug Name: morphine injection, Dose Ordered: 6 mg, Route: Intramuscular, Status: Given, Time: 10:28 03/19/2016, Detailed record available in Medication Service section. MEDICATION SERVICE HYDROcodone-acetaminophen: Order: HYDROcodone-acetaminophen (hydrocodone bitartrate/acetaminophen) - Dose: 5/325 mg : Oral Schedule: Now Ordered by: Mo Chacon DO Entered by: Mo Chacon DO SatMar 19, 2016 11:43 , Acknowledged by: Khushi Robin RN SatMar 19, 2016 11:44 Documented as given by: Khushi Robin RN SatMar 19, 2016 11:50 Patient, Medication, Dose, Route and Time verified prior to administration. Amount given: 1 tab, Site: Medication administered P.O., Patient appears Awake and alert- acceptable, Correct patient, time, route, dose and medication confirmed prior to administration, Patient advised of actions and side-effects prior to administration, Allergies confirmed and medications reviewed prior to administration, Patient in position of comfort, Side rails up, Cart in lowest position, Family at bedside. : Follow Up : Response assessment performed, No signs or symptoms of allergic reaction noted, Decreased pain. (12:19 KMOR) morphine injection: Order: morphine injection (morphine sulfate) - Dose: 6 mg : Intramuscular Schedule: Now Ordered by: Mo Chacon DO Entered by: Mo Chacon DO SatMar 19, 2016 10:22 , Acknowledged by: Khushi Robin RN SatMar 19, 2016 10:22 Documented as given by: Rima Burt RN SatMar 19, 2016 10:28 Patient, Medication, Dose, Route and Time verified prior to &a-1R&a+25V*p+0X*g7516E*c202B*c15G*c2P*p-0X&a-25V&a+1R Name: Hever Jimenez : 1960 M55 MedRec: [id number] AcctNum: [id number] Prepared: SatMar 19, 2016 12:41 by Interface Page 3 of 8 pMD [facility] EMERGENCY RECORD administration. IM medication, Amount given: 6MG, Medication administered to right buttock, Patient appears Awake and alert- acceptable, Correct patient, time, route, dose and medication confirmed prior to administration, Patient advised of actions and side-effects prior to administration, Allergies confirmed and medications reviewed prior to administration, Patient in position of comfort, Side rails up, Cart in lowest position, Family at bedside. : Follow Up : Response assessment performed, No signs or symptoms of allergic reaction noted, No change in pain. (11:05 KMOR) morphine injection: Order: morphine injection (morphine sulfate) - Dose: 6 mg : Intramuscular Schedule: Now Ordered by: Mo Chacon DO Entered by: Mo Chacon DO SatMar 19, 2016 11:07 , Acknowledged by: Khushi Robin RN SatMar 19, 2016 11:09 Documented as given by: Khushi Robin RN SatMar 19, 2016 11:14 Patient, Medication, Dose, Route and Time verified prior to administration. IM medication, Amount given: 6mg, Medication administered to right buttock, Patient appears Awake and alert- acceptable, Correct patient, time, route, dose and medication confirmed prior to administration, Patient advised of actions and side-effects prior to administration, Allergies confirmed and medications reviewed prior to administration, Patient in position of comfort, Side rails up, Cart in lowest position, Family at bedside. : Follow Up : Response assessment performed, No signs or symptoms of allergic reaction noted, Decreased pain. (11:45 KMOR) Valium oral: Order: Valium oral (diazepam) - Dose: 5 mg : Oral Schedule: Now Ordered by: Mo Chacon DO Entered by: Mo Chacon DO SatMar 19, 2016 10:23 , Acknowledged by: Rima Burt RN SatMar 19, 2016 10:23 Documented as given by: Khushi Robin RN SatMar 19, 2016 10:37 Patient, Medication, Dose, Route and Time verified prior to administration. Amount given: 5mg, Site: Medication administered P.O., Patient appears Awake and alert- acceptable, Correct patient, time, route, dose and medication confirmed prior to administration, Patient advised of actions and side-effects prior to administration, Allergies confirmed and medications reviewed prior to administration, Patient in position of comfort, Side rails up, Cart in lowest position, Family at bedside. : Follow Up : Response assessment performed, No signs or symptoms of allergic reaction noted, No change in pain. (11:05 KMOR) HPI BACK CHIEF COMPLAINT: Patient presents for evaluation of &a-1R&a+25V*p+0X*y2778N*c202B*c15G*c2P*p-0X&a-25V&a+1R Name: Hever Jimenez : 1960 M55 MedRec: [id number] AcctNum: [id number] Prepared: SatMar 19, 2016 12:41 by Interface Page 4 of 8 pMD [facility] EMERGENCY RECORD pain, to the right lower back. (10:23 MBRI) HISTORIAN: History provided by patient. (10:23 MBRI) MECHANISM OF INJURY: No apparent mechanism of injury, No domestic violence associated with this incident, Not work related, Pt with hx of back pain with stenosis and prior laminectomy 3yrs prior. (10:23 MBRI) LOCATION: Symptoms are localized to the back, right lumbar region, No radiation back to front, No radiation to the groin, Pain has not moved in location over time, with radiation to the buttock and down the outer portion of the right leg. (10:23 MBRI) QUALITY: Pain is dull in nature, described as aching. (10:23 MBRI) SEVERITY: Maximum severity of symptoms moderate, Currently symptoms are moderate. (10:23 MBRI) TIME COURSE: Sudden onset of symptoms, this am., Symptoms are worsening. (10:23 MBRI) ASSOCIATED WITH: No associated abdominal pain, No associated bladder incontinence, No associated bowel incontinence, No associated dysuria, No associated fever, No associated inability to ambulate, No associated motor weakness, No associated numbness, No associated problems with urination, Associated with radiation of pain, to the right leg, to the right buttock, Associated with sciatica, No associated tingling, Denies any other complaints. (10:25 MBRI) EXACERBATED BY: Patient's condition exacerbated by extension, Patient's condition exacerbated by flexion, Patient's condition exacerbated by movement, Patient's condition exacerbated by rotation, Patient's condition exacerbated by walking. (10:23 MBRI) RELIEVED BY: Patient's condition relieved by nothing. (10:23 MBRI) RISK FACTORS: No malignancy risks identified, Herniated disc risks:, History of herniated disc, Disc surgery, No risk factors for thoracic aortic dissection, No abdominal aortic aneurysm risk factors, No epidural bleed risk factors, No epidural abcess risk factors. (10:23 MBRI) ROS (10:23 MBRI) CONSTITUTIONAL: Negative constitutional review of systems, Historian denies chills, denies fever. EYES: Negative eye review of systems. ENT: Negative ears, nose, throat review of systems. CARDIOVASCULAR: Historian denies chest pain, denies dyspnea on exertion. RESPIRATORY: Historian denies cough, denies shortness of breath. GI: Negative gastrointestinal review of systems, Historian denies abdominal pain, denies diarrhea, denies nausea, denies vomiting. GENITOURINARY MALE: Historian denies dysuria, denies hematuria, denies incontinence, denies urinary frequency, denies urine output changes, denies urinary retention. MUSCULOSKELETAL: Historian reports back pain, denies fall, denies injury, denies neck pain. . &a-1R&a+25V*p+0X*z1690C*c202B*c15G*c2P*p-0X&a-25V&a+1R Name: Hever Jimenez : 1960 M55 MedRec: [id number] AcctNum: [id number] Prepared: SatMar 19, 2016 12:41 by Interface Page 5 of 8 pMD [facility] EMERGENCY RECORD SKIN: Negative skin review of systems, Historian denies skin changes. NEUROLOGIC: Negative neurologic review of systems, Historian denies focal weakness, denies sensory changes. PAST MEDICAL HISTORY (10:13 KMOR) MEDICAL HISTORY: Notes: hidradenitis suppurativa, Flu vaccine not up to date, Tetanus immunization up to date, Pneumococcal vaccine not up to date, Past medical history includes gastrointestinal disease, diverticulosis, Past medical history includes renal disease, kidney stone(s). MALE SURGICAL HISTORY: Renal stent, Surgical history of spinal surgery, lumbar. PSYCHIATRIC HISTORY: No previous psychiatric history. SOCIAL HISTORY: Patient denies alcohol use, Patient denies drug use, Patient currently uses tobacco, smokes cigarettes, daily, Patient has smoked for 15 years, Patient smokes 1/2 packs per day. PHYSICAL EXAM CONSTITUTIONAL: Vital Signs Reviewed, Nursing notes reviewed. (10:23 MBRI) HEAD: Head exam included findings of head atraumatic, normocephalic. (10:23 MBRI) RESPIRATORY CHEST: Respiratory exam included findings of no respiratory distress, Breath sounds not clear, Wheezing present, anteriorally, to the left upper lobe, to the right upper lobe, No rales, Breath sounds not diminished, Chest exam included findings of chest movement symmetrical. (10:23 MBRI) CARDIOVASCULAR: Cardiovascular exam included findings of heart rate regular rate and rhythm, Heart sounds normal, Carotids normal. (10:23 MBRI) ABDOMEN MALE: Abdominal exam included findings of abdomen nontender, Bowel sounds normal, no distension, no peritoneal signs, no rigidity, no guarding, no rebound. (10:23 MBRI) GENITOURINARY MALE: Genitourinary exam included findings of penis normal, Testicles normal. (10:28 MBRI) BACK: Back exam included findings of normal inspection, Range of motion, decreased, limited by pain, Tenderness, paraspinal to the right lower, no costovertebral angle tenderness, Straight leg raise, without pain on the left, with pain on the right at 10 degrees. (10:23 MBRI) UPPER EXTREMITY: Upper extremity exam included findings of inspection normal, Range of motion normal, Motor strength normal, Radial pulse normal, no cyanosis, no clubbing, no edema. (10:23 MBRI) LOWER EXTREMITY: Lower extremity exam included findings of inspection normal, Range of motion normal, Motor strength normal, Sensation intact, Pedal pulse normal, no cyanosis, no clubbing, no edema, no calf tenderness, Able to flex and extend his feet and &a-1R&a+25V*p+0X*u0087M*c202B*c15G*c2P*p-0X&a-25V&a+1R Name: Hever Jimenez : 1960 M55 MedRec: [id number] AcctNum: [id number] Prepared: SatMar 19, 2016 12:41 by Interface Page 6 of 8 pMD [facility] EMERGENCY RECORD toes. (10:23 MBRI) NEURO: Neuro exam findings include patient oriented to person, place and time, Speech normal, Antalgic Gait due to pain on the right side, Deep tendon reflexes normal, no clonus, No focal motor or sensory deficits noted in the lower ext bilaterally. (10:23 MBRI) SKIN: Skin exam included findings of skin warm, dry, and normal in color, scarring from hidradenitis is noted. (10:23 MBRI) EVENTS TRANSFER: Triage to Emergency Emergency Room -04. (SatMar 19, 2016 10:11 KMOR) Removed from Emergency Emergency Room -04. (12:32 LGIB) O2SAT INTERPRETATION (10:23 MBRI) O2SAT: Oxygen saturation interpretation: Normal. DOCTOR NOTES (12:27 MBRI) TEXT: Pt evaluated at this time and appears stable. No findings to suggest sig illness or issue requiring hospitalization or further intervention at this time. Eval and exam reveals back pain or a musculoskeletal etiology without any present neuro or vasc issues or emergencies. I rec conservative type therapy and PMD follow-up. Plan of care discussed with pt and questions answered. Pt was informed of reasons for follow-up and return and they stated understanding. Pt is stable for d/c home at this time. PROBLEM LIST No recorded problems DIAGNOSIS (12:24 MBRI) FINAL: PRIMARY: Sciatica - RIGHT. DISPOSITION PATIENT: Disposition Type: Discharge, Disposition: *Discharge Home, Condition: Improved. (12:24 MBRI) Patient left the department. (12:32 LGIB) INSTRUCTION (12:25 MBRI) DISCHARGE: SCIATICA. FOLLOWUP: [facility], [facility], [address] [place] [address], [facility] [address], , Follow up with Primary Care Physician in 7-10 days. SPECIAL: Please return for any further issues or concerns, we would be happy to see you. We hope you feel better soon. Follow-up with your PCP. PRESCRIPTION (12:24 MBRI) Flexeril: TABLET : 10 mg : ORAL : Quantity: 1 Unit: &a-1R&a+25V*p+0X*t6096E*c202B*c15G*c2P*p-0X&a-25V&a+1R Name: Hever Jimenez : 1960 M55 MedRec: [id number] AcctNum: [id number] Prepared: SatMar 19, 2016 12:41 by Interface Page 7 of 8 pMD [facility] EMERGENCY RECORD tab(s) Route: ORAL Schedule: every 8 hours PRN Dispense: 30 May substitute. Refills: No Refills . NOTES: No refills. HYDROcodone-acetaminophen: TABLET : 5 mg-325 mg : ORAL : Quantity: 1-2 Unit: tab(s) Route: ORAL Schedule: every 4 hours prn Dispense: 20 May substitute. Refills: No Refills . NOTES: ^s=No refills No refills. IMAGING PRECRIPTION: Image captured from scanner. (12:26 LGIB) *DISCHARGE INSTRUCTIONS RECEIPT: Image captured from scanner. (12:31 LGIB) *SUPPLY CHARGE SHEET: Image captured from scanner. (12:32 LGIB) RESULTS (12:20 MBRI) LABORATORY: Urinalysis w/ Rflx Microscopic Collection DT: SatMar 19, 2016 11:56, Color Yellow , Range (Yellow), Clarity Clear , Range (Clear), Specific [place], Urine 1.020 , Range (1.005-1.030), pH, Urine 6.0 , Range (5.0-9.0), Leukocyte Negative , Range (Negative), Nitrite Negative , Range (Negative), Protein, Urine (Dipstick) Negative mg/dL, Range (Neg-Trace), Glucose, Urine (Dipstick) Negative mg/dL, Range (Negative), Ketone, Urine Negative mg/dL, Range (Negative), Urobilinogen 0.2 mg/dL, Range (0.2-1.0), Bilirubin Negative , Range (Negative), Blood, Urine Negative , Range (Negative). Mendoza: JUSTOOR=ROSALIA Robin, Khushi MARTELLIB=ROSALIA Burt, Rima MBRI=DO Chacon Matthew &a-1R&a+25V*p+0X*m2771V*c202B*c15G*c2P*p-0X&a-25V&a+1R Name: TonyHever chakraborty Harris : 1960 M55 MedRec: [id number] AcctNum: [id number] Prepared: SatMar 19, 2016 12:41 by Interface Page 8 of 8 pMD MTDD
== END 2016-03-19 12:30 | disposition home or self-care (01) ==
LOC: BURERS 10:06
DX: M54.41 Lumbago with sciatica, right side (principal); F17.210 Nicotine dependence, cigarettes, uncomplicated
CPT/HCPCS: 81003; 96372; J2270